=== PATIENT | female | born 1995 | race Caucasian/White ===

== ENCOUNTER 2019-09-29 11:13 | Emergency (ER) | payer OTHER ==
--- NOTE | 2019-09-29 11:24 | ER Document Report ---
ED Medical Screen (RME) - General Chief Complaint: Vag Bleeding, +preg <12wks Stated Complaint: VAGINAL BLEEDING Time Seen by Provider: 09/29/19 11:18 Mode of Arrival: Ambulatory Information source: Patient Notes: Patient presents complaining of vaginal bleeding that started yesterday with pelvic cramping. Patient is currently G1, P0 and suspects that she is likely 6 weeks . Patient denies any urinary symptoms. Patient denies any lightheadedness or dizziness. I have greeted and performed a rapid initial assessment of this patient. A comprehensive ED assessment and evaluation of the patient, analysis of test results and completion of the medical decision making process will be conducted by additional ED providers. - Related Data Allergies/Adverse Reactions: No Known Allergies Allergy (Unverified 09/29/19 11:18) Physical Exam - Vital signs Vitals: Temp Pulse Resp BP Pulse Ox 98.3 F 113 H 16 125/68 100 09/29/19 11:17 09/29/19 11:17 09/29/19 11:17 09/29/19 11:17 09/29/19 11:17 - Abdominal Tenderness: Tender - Lower pelvic Course - Vital Signs Vital signs: Temp Pulse Resp BP Pulse Ox 98.3 F 113 H 16 125/68 100 09/29/19 11:17 09/29/19 11:17 09/29/19 11:17 09/29/19 11:17 09/29/19 11:17
[2019-09-29 11:57] LABS: ABSOLUTE EOSINOPHILS # (AUTO) 0.1 10^3/uL (0.0-0.6); ABSOLUTE LYMPHOCYTES (AUTO) 2.3 10^3/uL (0.5-4.7); ABSOLUTE MONOCYTES (AUTO) 0.6 10^3/uL (0.1-1.4); ABSOLUTE NEUT (AUTO) 3.9 10^3/uL (1.7-8.2); BASOPHILS % (AUTO) 0.2 % (0-2); EOSINOPHILS % (AUTO) 0.8 % (0-6); HEMATOCRIT 44.5 % (36.0-47.0); HEMOGLOBIN 15.2 g/dL (12.0-15.5); MEAN CORPUSCULAR HEMOGLOBIN 31.2 pg (27.0-33.4); MEAN CORPUSCULAR HGB CONC 34.2 g/dL (32.0-36.0); MEAN CORPUSCULAR VOLUME 91 fl (80-97); MONOCYTES % (AUTO) 8.5 % (3-13); PLATELET COUNT 272 10^3/uL (150-450); RED BLOOD COUNT 4.87 10^6/uL (3.72-5.28); RED CELL DISTRIBUTION WIDTH 12.8 % (11.5-14.0); SEGMENTED NEUTROPHILS % (AUTO) 56.5 % (42-78); TOTAL CELLS COUNTED % (AUTO) 100 %; WHITE BLOOD COUNT 6.8 10^3/uL (4.0-10.5)
[2019-09-29 12:11] LABS: APPEARANCE,URINE CLEAR; BILIRUBIN,URINE NEGATIVE (NEGATIVE); COLOR,URINE STRAW; GLUCOSE, URINE NEGATIVE (NEGATIVE); KETONES,URINE NEGATIVE (NEGATIVE); LEUKOCYTE ESTERASE,URINE NEGATIVE (NEGATIVE); NITRITE,URINE NEGATIVE (NEGATIVE); PROTEIN,URINE NEGATIVE (NEGATIVE); URINE SPECIFIC GRAVITY 1.004; UROBILINOGEN,URINE NEGATIVE mg/dL (<2.0)
--- NOTE | 2019-09-29 12:21 | RADIOLOGY REPORT (SQ) ---
EXAM DESCRIPTION: U/S OB TRANSVAGINAL W/O DOP COMPLETED DATE/TIME: 09/29/2019 12:03 pm REASON FOR STUDY: pelvic cramping COMPARISON: None. TECHNIQUE: Transvaginal static and realtime grayscale images acquired of the pelvis. Additional wyatt cted spectral and color Doppler images recorded. All images stored on PACs. CLINICAL AGE: 6 weeks 0 days BHCG: Pending. LIMITATIONS: None. FINDINGS: UTERUS: The uterus measures 7.1 x 2.5 x 3.0 cm. The endometrium measures 8 mm in double w all thickness. No visualized intrauterine . The cervix measures 2.2 cm in length. RIGHT ADNEXA: The right ovary measures 2.5 x 1.3 x 2.2 cm. Flow by Doppler was shown to the right ov karan. No adnexal free fluid. No adnexal masses. LEFT ADNEXA: The left ovary measures 3.1 x 1.5 x 3.2 cm. Flow by Doppler was shown to the left ovary . No adnexal free fluid. No adnexal masses. FREE FLUID: None. IMPRESSION: NO VISUALIZED INTRA- OR EXTRAUTERINE . ECTOPIC CANNOT BE EXCLUDED. FOLLOW-UP ULTRASOUND AND SERIAL BHCG LEVELS STRONGLY RECOMMENDED TO ACCURATELY ASSESS STATU S. TECHNICAL DOCUMENTATION: JOB ID: [id number]- All Rights Reserved Reading location - IP/workstation name: [email or web address]
[2019-09-29 13:50] VITALS: BP 100/68
--- NOTE | 2019-09-29 15:21 | ER Document Report ---
Entered by YOJANA THORNTON SCRIBE 09/29/19 1209 Acting as scribe for:JEFF GONZALEZ DO ED GI/ - General Chief Complaint: Vaginal Bleeding Stated Complaint: VAGINAL BLEEDING Time Seen by Provider: 09/29/19 11:18 Primary Care Provider: [facility] - Follow up in 3-5 days MARIZOL RUBIO MD [Primary Care Provider] - 10/02/19 Mode of Arrival: Ambulatory Information source: Patient Notes: This 24-year-old female patient, , approximately 6 weeks with LMP on 08/18 presents to the emergency department today with complaints of vaginal bleeding. Patient states she was seen by an SENIOR [employer]ING [employer] DEVELOPMENT REP last week and he told her that if the vaginal bleeding increased to come into the ED. Patient mentions mild lower abdominal cramping and mild back pain. Patient appears anxious. Patient denies any nausea or vomiting. - Related Data Allergies/Adverse Reactions: No Known Allergies Allergy (Unverified 09/29/19 11:18) Past Medical History - General Information source: Patient Last Menstrual Period: 08/18/2019 - Social History Smoking Status: Never Smoker Cigarette use (# per day): No Chew tobacco use (# tins/day): No Frequency of alcohol use: None Drug Abuse: None Lives with: Family Family History: Reviewed & Not Pertinent Patient has suicidal ideation: No Patient has homicidal ideation: No Review of Systems - Review of Systems Constitutional: No symptoms reported EENT: No symptoms reported Cardiovascular: No symptoms reported Respiratory: No symptoms reported Gastrointestinal: See HPI, Abdominal pain Genitourinary: No symptoms reported Female Genitourinary: See HPI, Last menstrual period - 08/18, , Vaginal bleeding Musculoskeletal: No symptoms reported Skin: No symptoms reported Hematologic/Lymphatic: No symptoms reported Neurological/Psychological: No symptoms reported -: Yes All other systems reviewed and negative Physical Exam - Vital signs Vitals: Temp Pulse Resp BP Pulse Ox 98.3 F 113 H 16 125/68 100 09/29/19 11:17 09/29/19 11:17 09/29/19 11:17 09/29/19 11:17 09/29/19 11:17 Interpretation: Normal - General General appearance: Appears well, Alert - HEENT Head: Normocephalic, Atraumatic Eyes: Normal Pupils: PERRL - Respiratory Respiratory status: No respiratory distress Chest status: Nontender Breath sounds: Normal Chest palpation: Normal - Cardiovascular Rhythm: Regular Heart sounds: Normal auscultation Murmur: No - Abdominal Inspection: Normal Distension: No distension Bowel sounds: Normal Tenderness: Tender - mild suprapubic TTP Organomegaly: No organomegaly - Back Back: Normal, Nontender - Extremities General upper extremity: Normal inspection, Nontender, Normal color, Normal ROM, Normal temperature General lower extremity: Normal inspection, Nontender, Normal color, Normal ROM, Normal temperature, Normal weight bearing. No: Jono's sign - Neurological Neuro grossly intact: Yes Cognition: Normal Orientation: AAOx4 [place] Coma Scale Eye Opening: Spontaneous [place] Coma Scale Verbal: Oriented [place] Coma Scale Motor: Obeys Commands [place] Coma Scale Total: 15 Speech: Normal Motor strength normal: LUE, RUE, LLE, RLE Sensory: Normal - Psychological Associated symptoms: Normal affect, Normal mood - Skin Skin Temperature: Warm Skin Moisture: Dry Skin Color: Normal Course - Re-evaluation Re-evalutation: 09/29/19 Patient is a 24-year-old female who comes in with bleeding and cramping. hCG is in the 80s. No intrauterine on ultrasound. Patient with some mild s uprapubic tenderness but no pain on one side. No evidence for free fluid. Do not suspect ruptured ectopic at this time. Patient is also A negative so RhoGam was given. Discussed at length threatened miscarriage versus early . Discussed with Dr. Da Silva who will see the patient in follow-up. Patient has been given a prescription for repeat beta quant. She will need to call her insurance, [employer] to see how she should go about follow-up and obtaining repeat blood work. Patient is agreeable to this plan and stable for discharge home. Return if any worsening or concerning symptoms. - Vital Signs Vital signs: Temp Pulse Resp BP Pulse Ox 98.3 F 88 16 100/68 99 09/29/19 11:17 09/29/19 13:43 09/29/19 13:43 09/29/19 13:43 09/29/19 13:43 - Laboratory Result Diagrams: 09/29/19 11:26 Laboratory results interpreted by me: 09/29/19 09/29/19 11:26 11:26 Beta HCG, Quant 83.98 H Urine Blood LARGE H - Diagnostic Test Radiology reviewed: Reports reviewed Discharge - Discharge Clinical Impression: Threatened miscarriage vs early bleeding, Need for rhogam due to Rh negative mother Condition: Stable Disposition: HOME, SELF-CARE Instructions: Rhogam ([facility]), Threatened Miscarriage ([facility]) Additional Instructions: Please call your doctor on Tuesday for a follow-up appointment and repeat blood work. Please return sooner if you have increased bleeding, pain, or further concerns. Forms: Follow-Up Laboratory Testing Referrals: MARIZOL RUBIO MD [Primary Care Provider] - 10/02/19 [facility] [Provider Group] - Follow up in 3-5 days I personally performed the services described in the documentation, reviewed and edited the documentation which was dictated to the scribe in my presence, and it accurately records my words and actions.
== END 2019-09-29 14:21 | disposition home or self-care (01) ==
LOC: ER 11:13
DX: O20.0 Threatened abortion (principal); O36.0910 Maternal care for other rhesus isoimmunization, first trimester, not applicable or unspecified; O20.9 Hemorrhage in early pregnancy, unspecified; Z3A.01 Less than 8 weeks gestation of pregnancy
CPT/HCPCS: 99284; 96372; 86900; 86901; 36415; 86850; 84702; 85025; 81001; 76817; J2790